=== PATIENT | female | born 1995 | race Caucasian/White ===

== ENCOUNTER → 2019-06-26 | Outpatient (CLI) | payer BC ==
[~2019-06-26] MED LIST: BIRTH CONTROL PO; HYDACE7.5L PO; IRON18 MG PO; MOTION RELIEF25 MG PO; OMEP20ER PO; POTCHL10ER PO
== END | disposition home or self-care (01) ==
LOC: LAB 15:40 → LAB SHORT 15:40
DX: Z34.93 Encounter for supervision of normal pregnancy, unspecified, third trimester (principal)
CPT/HCPCS: 87081; 87653

== ENCOUNTER 2019-07-07 18:55 | Observation (INO) | payer BC ==
[~2019-07-07] VITALS: Ht 160 cm; Wt 94.5 kg
--- NOTE | 2019-07-08 07:13 | NUR ---
PT SLEEPING SOUNDLY AT THIS TIME.
== END 2019-07-08 09:05 | disposition home or self-care (01) ==
LOC: OBS 18:55 → BC 18:55 → OBS 22:45 → BC 22:47
PROVIDERS: ADMIT Advanced Practice Midwife
DX: Z34.93 Encounter for supervision of normal pregnancy, unspecified, third trimester (principal); Z3A.36 36 weeks gestation of pregnancy
CPT/HCPCS: 59025; 81003; 96360; 96372; G0378; J2270; J2550; J7120

== ENCOUNTER 2019-07-16 22:21 | Inpatient (IN) | payer BC ==
[~2019-07-16] VITALS: Ht 165.1 cm; Wt 96.4 kg
[2019-07-16] MEDS ORDERED: CITA20 PO (23:11)
[2019-07-16 23:22] LABS: BASOPHILS ABSOLUTE AUTO 0.06 K/mm3 (0.00-0.23); BASOPHILS PERCENT AUTO 0 % (0-2); EOSINOPHILS ABSOLUTE AUTO 0.06 K/mm3 (0.00-0.68); EOSINOPHILS PERCENT AUTO 0 % (0-6); Hematocrit 29.8 % (33.0-51.0); Hemoglobin 9.9 g/dL (11.5-16.0); IMMATURE GRAN ABSOLUTE AUTO 0.13 K/mm3 (0.00-0.10); IMMATURE GRAN PERCENT AUTO 1 % (0-1); LYMPHOCYTES ABSOLUTE AUTO 2.46 K/mm3 (0.84-5.20); LYMPHOCYTES PERCENT AUTO 15 % (21-46); MONOCYTES ABSOLUTE AUTO 1.49 K/mm3 (0.16-1.47); MONOCYTES PERCENT AUTO 9 % (4-13); Mean Corpuscular HGB 27.7 pg (26.0-34.0); Mean Corpuscular HGB Conc 33.2 g/dL (31.5-36.5); Mean Corpuscular Volume 84 fL (80-100); Mean Platelet Volume 9.6 fL (9.1-12.4); NEUTROPHILS ABSOLUTE AUTO 11.86 K/mm3 (1.96-9.15); NEUTROPHILS PERCENT AUTO 74 % (41-73); Platelet Count 406 K/mm3 (150-400); RDW Coefficient Variation 12.3 % (11.7-14.2); RDW Standard Deviation 37.5 fL (35.1-46.3); Red Blood Cell Count 3.57 M/mm3 (3.80-5.20); White Blood Cell Count 16.06 K/mm3 (4.00-11.30)
--- NOTE | 2019-07-17 15:36 | NUR ---
07/17/19 1536 Suzanne Sanchez 1527 PT INTO OR WITH METZGER CATHETER DRAINING RED COLORED URINE, ASSIST W/TRANSFERING PT TO OR BED
[2019-07-17 16:10] LABS: PCO2 Cord - Arterial 67.7 mmHg (40-50); PO2 Cord - Arterial 21.7 mmHg (16-20)
[2019-07-17 16:13] LABS: PCO2 Cord - Venous 45.3 mmHg (40-50); PO2 Cord - Venous 32.6 mmHg (28-32); pH Umbilical Cord - Venous 7.35 (7.26-7.35)
--- NOTE | 2019-07-17 16:45 | NUR ---
EPIDURAL CATHETER REMOVED BY DR ESTRADA IN OR, TIP INTACT
--- NOTE | 2019-07-17 17:16 | NUR ---
DR PASCAL AT BEDSIDE UPDATING PT ON NB CONDITION
[2019-07-17 18:33] LABS: Source, Urine Catheter
[2019-07-17 18:35] LABS: Bilirubin, Urine Neg (Neg); Blood, Urine 5+ (Neg); Glucose Qualitative, Urine Neg (Neg); Ketones, Urine 3+ (Neg); Leukocyte Esterase, Urine 1+ (Neg); Nitrite, Urine Neg (Neg); Protein, Urine 1+ (Neg); Specific Gravity, Urine 1.005 (1.003-1.022); Urobilinogen, Urine NORM (Normal)
[2019-07-17 18:41] LABS: Appearance, Urine Clear (Clear); Color, Urine Yellow (P-Yellow)
[2019-07-17 18:42] LABS: Bacteria Few /hpf; Red Blood Cells, Urine TNTC /hpf (0-2); Squamous Epithelial Cells Rare /hpf (Few)
--- NOTE | 2019-07-17 22:49 | NUR ---
SMALL BILATERAL LABIAL HEMATOMAS NOTED. PSYCHIATRIC AIDE IN ROOM TO ASSIST WITH PAIN ASSESSMENT. MD AWARE OF PAIN AND SMALL LABIAL HEMATOMAS. WILL CONTINUE TO MEDICATE, REPOSITION, AND USE ICE, HEAT, AND DISTRACTION TO CONTROL PAIN.
--- NOTE | 2019-07-17 23:40 | NUR ---
PT USING HEATING PAD FOR BACK PAIN. PT APPEARS TO BE MORE COMFORTABLE AT THIS TIME.
[2019-07-18 06:19] LABS: Hematocrit 23.6 % (33.0-51.0); Mean Corpuscular HGB 28.4 pg (26.0-34.0); Mean Corpuscular HGB Conc 33.9 g/dL (31.5-36.5); Mean Corpuscular Volume 84 fL (80-100); Mean Platelet Volume 9.7 fL (9.1-12.4); Platelet Count 313 K/mm3 (150-400); RDW Coefficient Variation 12.5 % (11.7-14.2); RDW Standard Deviation 38.1 fL (35.1-46.3); Red Blood Cell Count 2.82 M/mm3 (3.80-5.20); White Blood Cell Count 17.97 K/mm3 (4.00-11.30)
--- NOTE | 2019-07-18 07:41 | NUR ---
PT UP TO W/C TO NURSERY TO TRY AND BREASTFEED .
[2019-07-19] MEDS ORDERED: Percocet 5-3251 EACH PO (08:56)
[2019-07-19] MEDS ORDERED: DOCU100 PO (08:56)
[2019-07-19] MEDS ORDERED: IBUP800 PO (08:56)
[2019-07-19] MEDS ORDERED: Milk Of Ma400 MG/5 M (08:57)
--- NOTE | 2019-07-19 14:49 | NUR ---
DISCHARGE NOTE RN EDUCATED PT ON DISCHARGE INSTRUCTION, PT VERBALIZED UNDERSTANDING. PT EDUCATED ON FOLLOWUP APPOINTMENTS, PT VERBALIZED UNDERSTANDING. PT DENIES ANY QUESTIONS OR CONCERNS AT THIS TIME. RN HANDED DISCHARGE PAPER INSTRUCTIONS TO PT. PT DISCHARGED TO BOARDER STATUS.
== END 2019-07-19 16:00 | disposition home or self-care (01) | DRG 788 ==
LOC: OBS 22:21 → BC 22:59
PROVIDERS: ADMIT Obstetrics & Gynecology
PROC: 10907ZC Drainage of Amniotic Fluid, Therapeutic from Products of Conception, Via Natural or Artificial Opening (ICD-10-PCS; 2019-07-17)
PROC: 3E0R3BZ Introduction of Anesthetic Agent into Spinal Canal, Percutaneous Approach (ICD-10-PCS; 2019-07-17)
PROC: 10D00Z1 Extraction of Products of Conception, Low, Open Approach (ICD-10-PCS; principal; 2019-07-17 15:00)
DX: O40.3XX0 Polyhydramnios, third trimester, not applicable or unspecified (principal); O76 Abnormality in fetal heart rate and rhythm complicating labor and delivery; O62.1 Secondary uterine inertia; O75.81 Maternal exhaustion complicating labor and delivery; Z3A.37 37 weeks gestation of pregnancy; Z37.0 Single live birth; O66.5 Attempted application of vacuum extractor and forceps
CPT/HCPCS: 36415; 51702; 81001; 82803; 85025; 85027; 86850; 86900; 86901; 94660; 99213; J0690; J1170; J1885; J2001; J2370; J2405; J2590; J2704; J2765; J3010; J7120

== ENCOUNTER 2020-06-12 05:09 | Emergency (ER) | payer BC, SELFPAY ==
[~2020-06-12] VITALS: Ht 162.6 cm; Wt 76.2 kg
[~2020-06-12 05:09] MED LIST changes: +CITA20 PO; +DOCU100 PO; +IBUP800 PO; +Milk Of Ma400 MG/5 M; +Percocet 5-3251 EACH PO
== END 2020-06-12 07:41 | disposition home or self-care (01) ==
LOC: ER 05:09
DX: R51.9 Headache, unspecified (principal); K21.9 Gastro-esophageal reflux disease without esophagitis; Z79.899 Other long term (current) drug therapy; Z88.2 Allergy status to sulfonamides; Z91.09 Other allergy status, other than to drugs and biological substances
CPT/HCPCS: 96374; 96375; 99283-25; J1200; J1885; J2765; J7030

== ENCOUNTER 2020-10-22 14:10 | Day surgery (SDC) | payer BC, SELFPAY ==
[~2020-10-22] VITALS: Ht 162.6 cm; Wt 81.3 kg
--- NOTE | 2020-10-22 16:04 | NUR ---
10/22/20 1604 Mirtha Perez 100CC NACL FLUID DEFICIT. SURGEON AWARE.
== END 2020-10-22 17:07 | disposition home or self-care (01) ==
LOC: ORSCSDS 14:10
PROVIDERS: Obstetrics & Gynecology
PROC: 0UDB8ZX Extraction of Endometrium, Via Natural or Artificial Opening Endoscopic, Diagnostic (ICD-10-PCS; principal; 2020-10-22 15:30)
DX: R93.89 Abnormal findings on diagnostic imaging of other specified body structures (principal); K21.9 Gastro-esophageal reflux disease without esophagitis; E66.9 Obesity, unspecified; Z68.30 Body mass index [BMI] 30.0-30.9, adult; Z79.899 Other long term (current) drug therapy
CPT/HCPCS: 88305; A9270; J1100; J2250; J2370; J2405; J2704; J3010

== ENCOUNTER 2021-07-04 13:20 | Inpatient (IN) | payer BC ==
[~2021-07-04] VITALS: Ht 160 cm; Wt 77.4 kg
[2021-07-04 13:43] LABS: BASOPHILS ABSOLUTE AUTO 0.04 K/mm3 (0.00-0.23); BASOPHILS PERCENT AUTO 1 % (0-2); EOSINOPHILS ABSOLUTE AUTO 0.01 K/mm3 (0.00-0.68); EOSINOPHILS PERCENT AUTO 0 % (0-6); Hemoglobin 9.3 g/dL (11.5-16.0); IMMATURE GRAN ABSOLUTE AUTO 0.02 K/mm3 (0.00-0.10); IMMATURE GRAN PERCENT AUTO 0 % (0-1); LYMPHOCYTES ABSOLUTE AUTO 1.25 K/mm3 (0.84-5.20); LYMPHOCYTES PERCENT AUTO 18 % (21-46); MONOCYTES ABSOLUTE AUTO 0.68 K/mm3 (0.16-1.47); MONOCYTES PERCENT AUTO 10 % (4-13); Mean Corpuscular HGB 21.7 pg (26.0-34.0); Mean Corpuscular Volume 72 fL (80-100); Mean Platelet Volume 9.3 fL (9.1-12.4); NEUTROPHILS ABSOLUTE AUTO 5.03 K/mm3 (1.96-9.15); NEUTROPHILS PERCENT AUTO 72 % (41-73); Platelet Count 418 K/mm3 (150-400); RDW Coefficient Variation 17.9 % (11.7-14.2); Red Blood Cell Count 4.28 M/mm3 (3.80-5.20); White Blood Cell Count 7.03 K/mm3 (4.00-11.30)
[2021-07-04 14:03] LABS: Alanine Aminotransfer (ALT/SGP 18 U/L (12-78); Albumin, Blood 3.5 g/dL (3.4-5.0); Albumin/Globulin Ratio 0.9 (0.8-1.8); Alk Phos 63 U/L (50-136); Anion Gap 8 mmol/L (6-16); Aspartate Aminotrans (AST/SGOT 11 U/L (12-37); Bilirubin, Total 0.2 mg/dL (0.1-1.0); Blood Urea Nitrogen 7 mg/dL (8-24); CO2, Blood 23 mmol/L (21-32); Calcium, Blood 8.2 mg/dL (8.5-10.1); Chloride, Blood 109 mmol/L (98-108); Creatinine, Blood 0.78 mg/dL (0.40-1.00); Glomerular Filtration Rate >60 (60-); Glucose, Blood 144 mg/dL (70-99); Potassium, Blood 3.1 mmol/L (3.5-5.5); Sodium, Blood 140 mmol/L (136-145); Total Protein, Blood 7.5 g/dL (6.4-8.2)
[2021-07-04 14:36] LABS: Influenza B, PCR NEGATIVE (NEGATIVE); Resp Syncytial Virus, PCR NEGATIVE (NEGATIVE); SARS-Cov-2 (COVID-19) PCR, MMC NEGATIVE (NEGATIVE)
[2021-07-04 14:39] LABS: Influenza A, PCR POSITIVE (NEGATIVE)
[2021-07-04 14:55] LABS: Source, Urine Clean Catch
[2021-07-04 15:06] LABS: Bilirubin, Urine Neg (Neg); Blood, Urine Neg (Neg); Glucose Qualitative, Urine Neg (Neg); Ketones, Urine 3+ (Neg); Leukocyte Esterase, Urine 3+ (Neg); Nitrite, Urine Neg (Neg); Protein, Urine 2+ (Neg); Urobilinogen, Urine NORM (Normal)
[2021-07-04 15:19] LABS: Appearance, Urine Hazy (Clear); Color, Urine Pale Yellow (P-Yellow)
[2021-07-04 15:20] LABS: Bacteria Many /hpf; Red Blood Cells, Urine 0-2 /hpf (0-2); Squamous Epithelial Cells Many /hpf (Few)
[2021-07-04 15:23] LABS: U Amphetamine Screen Not Detected; U Barbituate Screen Not Detected; U Benzodiazapine Screen Not Detected; U Buprenorphine Screen Not Detected; U Cannabinoids Screen Not Detected; U Cocaine Screen Not Detected; U Methadone Screen Not Detected; U Methamphetamine Screen Not Detected; U Opiates Screen Not Detected; U Oxycodone Screen Not Detected; U Phencyclidine Screen Not Detected; U Propoxyphene Screen Not Detected
[2021-07-04 16:28] LABS: RBC Count, CSF 52 /mm3 (0-0); WBC Count, CSF 1 /mm3 (0-5)
[2021-07-04] MEDS ORDERED: MICROGESTIN 211 EAC1 PO (16:34)
[2021-07-04 16:37] LABS: Appearance, CSF Clear (Clear); Color, CSF No Color (No Color)
[2021-07-04 16:46] LABS: Appearance, CSF Clear (Clear); Color, CSF No Color (No Color); RBC Count, CSF 0 /mm3 (0-0); WBC Count, CSF 1 /mm3 (0-5)
[2021-07-04 17:11] LABS: Lymphocytes, CSF 88 % (40-80); Neutrophils, CSF 13 % (0-6)
[2021-07-04 17:23] LABS: Percent Saturation 2.6 % (15.0-50.0)
[2021-07-04 17:23] LABS: Lymphocytes, CSF 55 % (40-80); Monocytes, CSF 45 % (15-45)
[2021-07-04 17:35] LABS: Glucose, CSF 70 mg/dL (40-70)
--- NOTE | 2021-07-04 19:21 | NUR ---
ADMIT NOTE 26YR OLD FEMALE ADMITTED TO FLOOR FROM THE ED. DX INFLUENZA A, POSSIBLE UTI. COVID NEGATIVE. CONFUSED. AT BEDSIDE ANSWERING QUESTIONS. REPORTEDLY PASSED OUT IN ED. ORIENTED TO USE OF CALL LIGHT. CALL LIGHT IN LISA. ISOLATION PRECAUTIONS INITIATED. WILL BE ON [employer]. CALL LIGHT IN REACH
[2021-07-04 19:44] LABS: Cryptococcus Neoformans/Gattii Not Detected (NOT DETECT); Enterovirus Not Detected (NOT DETECT); Escherichia Coli K1 Not Detected (NOT DETECT); Haemophilus Influenza Not Detected (NOT DETECT); Herpes Simplex Virus 1 Not Detected (NOT DETECT); Herpes Simplex Virus 2 Not Detected (NOT DETECT); Human Herpesvirus 6 Not Detected (NOT DETECT); Human Parechovirus Not Detected (NOT DETECT); Listeria Monocytogenes Not Detected (NOT DETECT); Neisseria Meningitidis Not Detected (NOT DETECT); Streptococcus Agalactiae Not Detected (NOT DETECT); Streptococcus Pneumoniae Not Detected (NOT DETECT); Varicella Zoster Virus Not Detected (NOT DETECT)
[2021-07-05 05:18] LABS: BASOPHILS ABSOLUTE AUTO 0.01 K/mm3 (0.00-0.23); BASOPHILS PERCENT AUTO 0 % (0-2); EOSINOPHILS PERCENT AUTO 0 % (0-6); Hematocrit 26.6 % (33.0-51.0); Hemoglobin 8.1 g/dL (11.5-16.0); IMMATURE GRAN ABSOLUTE AUTO 0.01 K/mm3 (0.00-0.10); IMMATURE GRAN PERCENT AUTO 0 % (0-1); LYMPHOCYTES PERCENT AUTO 25 % (21-46); MONOCYTES ABSOLUTE AUTO 0.66 K/mm3 (0.16-1.47); MONOCYTES PERCENT AUTO 16 % (4-13); Mean Corpuscular HGB 22.4 pg (26.0-34.0); Mean Corpuscular HGB Conc 30.5 g/dL (31.5-36.5); Mean Corpuscular Volume 74 fL (80-100); Mean Platelet Volume 9.9 fL (9.1-12.4); NEUTROPHILS ABSOLUTE AUTO 2.37 K/mm3 (1.96-9.15); NEUTROPHILS PERCENT AUTO 59 % (41-73); Platelet Count 293 K/mm3 (150-400); RDW Coefficient Variation 18.2 % (11.7-14.2); RDW Standard Deviation 49.3 fL (35.1-46.3); Red Blood Cell Count 3.61 M/mm3 (3.80-5.20); White Blood Cell Count 4.05 K/mm3 (4.00-11.30)
[2021-07-05 05:47] LABS: Alanine Aminotransfer (ALT/SGP 16 U/L (12-78); Albumin, Blood 2.8 g/dL (3.4-5.0); Albumin/Globulin Ratio 0.9 (0.8-1.8); Alk Phos 51 U/L (50-136); Anion Gap 4 mmol/L (6-16); Aspartate Aminotrans (AST/SGOT 15 U/L (12-37); Bilirubin, Total 0.2 mg/dL (0.1-1.0); Blood Urea Nitrogen 6 mg/dL (8-24); Bun/Creatinine Ratio 7.3 (12.0-20.0); CO2, Blood 22 mmol/L (21-32); Calcium, Blood 7.7 mg/dL (8.5-10.1); Chloride, Blood 114 mmol/L (98-108); Creatinine, Blood 0.82 mg/dL (0.40-1.00); Globulin, Blood 3.2 g/dL (2.2-4.0); Glomerular Filtration Rate >60 (60-); Glucose, Blood 89 mg/dL (70-99); Potassium, Blood 3.8 mmol/L (3.5-5.5); Sodium, Blood 140 mmol/L (136-145)
--- NOTE | 2021-07-05 17:09 | NUR ---
SITTING IN BEDSIDE CHAIR CURRETLY. TELEMETRY INTACT. IVF INFUSING WITHOUT DIFFICULTY. VOMITTED X 1 TODAY, BUT NO ZOFRAN ADMINISTERED BECAUSE IT WAS IMMEDIATELY RELIEVED WITH VOMITTING. MEDICATED PER E-MAR FOR SORE THROAT PAIN, GENERAL ACHINESS AND COUGH. TOLERATING PO FLUIDS WELL. SPECIAL FOODS ORDERED PER REQUEST. VOIDS WITHOUT DIFFICULY AND STATED THIS MORNING THE BURNING HAS RESIDED. SPOUSE AT BEDSIDE MOST OF THE DAY. ISOLATION DUE TO INFLUENZA. WILL MONITOR.
--- NOTE | 2021-07-06 04:47 | NUR ---
SHIFT SUMMARY 26 YR F ADMITTED ON 07/04/21 FOR INFLUENZA A. NO ACUTE CHANGES OVERNIGHT. PT C/O SORE THROAT AND WAS GIVEN A LOZENGE PER EMAR. THE LOZENGES CAME IN PACKS SO THE REMAINDER IS IN THE ROOM. SHE STATES THAT SHE IS FEELING MUCH BETTER THAN SHE WAS 2 DAYS AGO AND SHE APPEARS TO BE IN GOOD SPIRITS.SHE IS POLITE, COOPERATIVE, AND USES CALL LIGHT APPROPRAITELY.
[2021-07-06 05:36] LABS: BASOPHILS ABSOLUTE AUTO 0.02 K/mm3 (0.00-0.23); BASOPHILS PERCENT AUTO 1 % (0-2); EOSINOPHILS ABSOLUTE AUTO 0.06 K/mm3 (0.00-0.68); EOSINOPHILS PERCENT AUTO 2 % (0-6); Hematocrit 28.4 % (33.0-51.0); Hemoglobin 8.6 g/dL (11.5-16.0); IMMATURE GRAN ABSOLUTE AUTO 0.01 K/mm3 (0.00-0.10); IMMATURE GRAN PERCENT AUTO 0 % (0-1); LYMPHOCYTES ABSOLUTE AUTO 1.36 K/mm3 (0.84-5.20); LYMPHOCYTES PERCENT AUTO 34 % (21-46); MONOCYTES ABSOLUTE AUTO 0.47 K/mm3 (0.16-1.47); MONOCYTES PERCENT AUTO 12 % (4-13); Mean Corpuscular HGB 22.2 pg (26.0-34.0); Mean Corpuscular HGB Conc 30.3 g/dL (31.5-36.5); Mean Corpuscular Volume 73 fL (80-100); NEUTROPHILS ABSOLUTE AUTO 2.09 K/mm3 (1.96-9.15); NEUTROPHILS PERCENT AUTO 52 % (41-73); Platelet Count 308 K/mm3 (150-400); RDW Coefficient Variation 18.8 % (11.7-14.2); RDW Standard Deviation 49.9 fL (35.1-46.3); Red Blood Cell Count 3.87 M/mm3 (3.80-5.20); White Blood Cell Count 4.01 K/mm3 (4.00-11.30)
[2021-07-06 06:08] LABS: Anion Gap 6 mmol/L (6-16); Blood Urea Nitrogen 7 mg/dL (8-24); Bun/Creatinine Ratio 9.1 (12.0-20.0); CO2, Blood 23 mmol/L (21-32); Calcium, Blood 7.8 mg/dL (8.5-10.1); Chloride, Blood 113 mmol/L (98-108); Creatinine, Blood 0.77 mg/dL (0.40-1.00); Glomerular Filtration Rate >60 (60-); Glucose, Blood 121 mg/dL (70-99); Potassium, Blood 4.2 mmol/L (3.5-5.5); Sodium, Blood 142 mmol/L (136-145)
--- NOTE | 2021-07-06 14:17 | NUR ---
TELEMETRY DISCONTINUED PER MD ORDER. NSR 63 PRIOR TO D/C.
[2021-07-06] MEDS ORDERED: ACET500 PO (15:16)
[2021-07-06] MEDS ORDERED: BENMENLOZ (15:17)
[2021-07-06] MEDS ORDERED: IBUP400 PO (15:18)
[2021-07-06] MEDS ORDERED: OSEL75CA PO (15:19)
[2021-07-06] MEDS ORDERED: ONDA4ODT MM (15:20)
--- NOTE | 2021-07-06 16:02 | NUR ---
DISCHARGE INSTRUCTIONS DISCUSSED WITH PATIENT AND SPOUSE. COPY GIVEN TO PATIENT. VERBALIZED UNDERSTANDING.
--- NOTE | 2021-07-06 16:22 | NUR ---
DISCHARGED HOME PER WHEELCHAIR PER PERSONAL VEHICLE WITH SPOUSE. AAO X 4. NO COMPLAINTS VOICED AT DISCHARGED.
== END 2021-07-06 16:42 | disposition home or self-care (01) | DRG 865 ==
LOC: ER 13:20 → MEDS 17:47
PROVIDERS: Emergency Medicine; Nurse Practitioner Acute Care; Physician Assistant; ADMIT Internal Medicine
PROC: 009U3ZX Drainage of Spinal Canal, Percutaneous Approach, Diagnostic (ICD-10-PCS; principal; 2021-07-04)
DX: J10.81 Influenza due to other identified influenza virus with encephalopathy (principal); G92.8 Other toxic encephalopathy; I47.1 Supraventricular tachycardia; Z20.822 Contact with and (suspected) exposure to COVID-19; E87.6 Hypokalemia; F41.9 Anxiety disorder, unspecified; F32.A Depression, unspecified; K21.9 Gastro-esophageal reflux disease without esophagitis; F43.23 Adjustment disorder with mixed anxiety and depressed mood; D50.9 Iron deficiency anemia, unspecified; Z88.2 Allergy status to sulfonamides; Z79.899 Other long term (current) drug therapy; Z79.3 Long term (current) use of hormonal contraceptives
CPT/HCPCS: 0241U; 36415; 62270; 71045; 71260; 80048; 80053; 81001; 82272; 82728; 82945; 83540; 83550; 83735; 84157; 84443; 84484; 84703; 85025; 85379; 86403; 87070; 87086; 87205; 87483; 89051; 93005; 93010; 93970; 96365; 96375; 99285-25; A9270; J0133; J0696; J1650; J2405; J2916; J3480; J7030; Q9967

== ENCOUNTER → 2021-07-21 | Outpatient (CLI) | payer BC ==
[~2021-07-21] MED LIST changes: +ACET500 PO; +BENMENLOZ; +IBUP400 PO; +MICROGESTIN 211 EAC1 PO; +ONDA4ODT MM; +OSEL75CA PO
[2021-07-21 18:17] LABS: Hematocrit 31.1 % (33.0-51.0); Hemoglobin 9.4 g/dL (11.5-16.0)
== END ==
LOC: LAB SHORT 17:25
PROVIDERS: Internal Medicine
DX: D64.9 Anemia, unspecified (principal)
CPT/HCPCS: 85014; 85018

== ENCOUNTER → 2022-01-26 | Outpatient (CLI) | payer BC | END | disposition home or self-care (01) | LOC: LAB SHORT 18:18 → LAB 18:18 | DX: Z33.1 Pregnant state, incidental (principal) | CPT/HCPCS: 84702 ==

== ENCOUNTER → 2022-02-06 | Outpatient (CLI) | payer BC | LOC: LAB SHORT 16:27 | DX: O20.0 Threatened abortion (principal); Z3A.00 Weeks of gestation of pregnancy not specified | CPT/HCPCS: 84702 ==

== ENCOUNTER → 2022-02-25 | Outpatient (CLI) | payer BC ==
[2022-02-25 17:03] LABS: Source, Urine Voided
[2022-02-25 17:59] LABS: Bacteria Mod /hpf; Red Blood Cells, Urine 0-2 /hpf (0-2); Squamous Epithelial Cells Few /hpf (Few); White Blood Cells, Urine 0-2 /hpf (0-5)
[2022-02-25 18:03] LABS: U Amphetamine Screen Not Detected; U Barbituate Screen Not Detected; U Benzodiazapine Screen Not Detected; U Buprenorphine Screen Not Detected; U Cannabinoids Screen Not Detected; U Cocaine Screen Not Detected; U Methadone Screen Not Detected; U Methamphetamine Screen Not Detected; U Opiates Screen DETECTED; U Oxycodone Screen Not Detected; U Phencyclidine Screen Not Detected; U Propoxyphene Screen Not Detected
== END ==
LOC: LAB SHORT 17:01
PROVIDERS: Obstetrics & Gynecology
DX: Z34.91 Encounter for supervision of normal pregnancy, unspecified, first trimester (principal); Z3A.00 Weeks of gestation of pregnancy not specified
CPT/HCPCS: 81015; 87086

== ENCOUNTER 2022-03-25 04:26 | Emergency (ER) | payer BC ==
[~2022-03-25] VITALS: Ht 160 cm; Wt 83.5 kg
[2022-03-25 05:12] LABS: BASOPHILS ABSOLUTE AUTO 0.05 K/mm3 (0.00-0.23); BASOPHILS PERCENT AUTO 1 % (0-2); EOSINOPHILS PERCENT AUTO 2 % (0-6); Hemoglobin 10.5 g/dL (11.5-16.0); IMMATURE GRAN ABSOLUTE AUTO 0.02 K/mm3 (0.00-0.10); IMMATURE GRAN PERCENT AUTO 0 % (0-1); LYMPHOCYTES ABSOLUTE AUTO 2.34 K/mm3 (0.84-5.20); LYMPHOCYTES PERCENT AUTO 26 % (21-46); MONOCYTES ABSOLUTE AUTO 0.55 K/mm3 (0.16-1.47); MONOCYTES PERCENT AUTO 6 % (4-13); Mean Corpuscular HGB Conc 31.8 g/dL (31.5-36.5); Mean Corpuscular Volume 76 fL (80-100); Mean Platelet Volume 9.7 fL (9.1-12.4); NEUTROPHILS ABSOLUTE AUTO 5.93 K/mm3 (1.96-9.15); NEUTROPHILS PERCENT AUTO 65 % (41-73); Platelet Count 430 K/mm3 (150-400); RDW Coefficient Variation 15.8 % (11.7-14.2); RDW Standard Deviation 43.7 fL (35.1-46.3); Red Blood Cell Count 4.37 M/mm3 (3.80-5.20); White Blood Cell Count 9.09 K/mm3 (4.00-11.30)
[2022-03-25 05:30] LABS: Albumin, Blood 3.1 g/dL (3.4-5.0); Albumin/Globulin Ratio 0.8 (0.8-1.8); Bilirubin, Total 0.2 mg/dL (0.1-1.0); Bun/Creatinine Ratio 21.6 (12.0-20.0); Calcium, Blood 8.8 mg/dL (8.5-10.1); Creatinine, Blood 0.6 mg/dL (0.40-1.00); Globulin, Blood 3.8 g/dL (2.2-4.0); Potassium, Blood 3.6 mmol/L (3.5-5.5); Total Protein, Blood 6.9 g/dL (6.4-8.2)
[2022-03-25 09:44] LABS: Hematocrit 29.8 % (33.0-51.0); Hemoglobin 9.3 g/dL (11.5-16.0); Mean Corpuscular HGB 23.8 pg (26.0-34.0); Mean Corpuscular HGB Conc 31.2 g/dL (31.5-36.5); Mean Corpuscular Volume 76 fL (80-100); Mean Platelet Volume 9.8 fL (9.1-12.4); Platelet Count 413 K/mm3 (150-400); RDW Coefficient Variation 15.9 % (11.7-14.2); RDW Standard Deviation 43.6 fL (35.1-46.3); White Blood Cell Count 11.25 K/mm3 (4.00-11.30)
--- NOTE | 2022-03-25 10:37 | NUR ---
Patient is lying in bed and alert. Pt's spouse, Jerry is bedside. Pt explains the events that led to her hospitalization and what has occurred. She shares about her perspective and her concerns. I provide therapeutic listening, theological insights and prayer. Pt and Jerry respond well and show signs of increased peace. They voice appreciation for the visit.
== END 2022-03-25 12:24 | disposition home or self-care (01) ==
LOC: ER 04:26
PROVIDERS: Student in an Organized Health Care Education/Training Program
DX: O20.9 Hemorrhage in early pregnancy, unspecified (principal); Z3A.13 13 weeks gestation of pregnancy; Z88.2 Allergy status to sulfonamides; Z91.09 Other allergy status, other than to drugs and biological substances; Z79.899 Other long term (current) drug therapy
CPT/HCPCS: 36415; 76801; 76817; 80053; 85025; 85027; 86850; 86900; 86901; A9270; J1170; J1885; J2405; J3010; J7030

== ENCOUNTER 2022-10-12 20:59 | Emergency (ER) | payer BC ==
[~2022-10-12] VITALS: Ht 157.5 cm; Wt 79.8 kg
[2022-10-12 21:19] LABS: BASOPHILS ABSOLUTE AUTO 0.08 K/mm3 (0.00-0.23); BASOPHILS PERCENT AUTO 1 % (0-2); EOSINOPHILS ABSOLUTE AUTO 0.21 K/mm3 (0.00-0.68); EOSINOPHILS PERCENT AUTO 2 % (0-6); Hematocrit 27.4 % (33.0-51.0); Hemoglobin 8.1 g/dL (11.5-16.0); IMMATURE GRAN ABSOLUTE AUTO 0.06 K/mm3 (0.00-0.10); IMMATURE GRAN PERCENT AUTO 1 % (0-1); LYMPHOCYTES ABSOLUTE AUTO 3.75 K/mm3 (0.84-5.20); LYMPHOCYTES PERCENT AUTO 30 % (21-46); MONOCYTES ABSOLUTE AUTO 0.94 K/mm3 (0.16-1.47); MONOCYTES PERCENT AUTO 8 % (4-13); Mean Corpuscular HGB Conc 29.6 g/dL (31.5-36.5); Mean Corpuscular Volume 68 fL (80-100); NEUTROPHILS ABSOLUTE AUTO 7.57 K/mm3 (1.96-9.15); NEUTROPHILS PERCENT AUTO 60 % (41-73); Platelet Count 597 K/mm3 (150-400); RDW Coefficient Variation 17.6 % (11.7-14.2); RDW Standard Deviation 42.5 fL (35.1-46.3); Red Blood Cell Count 4.05 M/mm3 (3.80-5.20); White Blood Cell Count 12.61 K/mm3 (4.00-11.30)
[2022-10-12 22:30] VITALS: BP 118/47
== END 2022-10-12 22:52 | disposition home or self-care (01) ==
LOC: ER 20:59
PROVIDERS: Emergency Medicine
DX: O03.9 Complete or unspecified spontaneous abortion without complication (principal); Z88.2 Allergy status to sulfonamides; Z79.899 Other long term (current) drug therapy; Z88.8 Allergy status to other drugs, medicaments and biological substances
CPT/HCPCS: 84702; 85025; 86900; 86901; J1885; J7030

== ENCOUNTER 2025-02-06 07:02 | Day surgery (SDC) | payer BC, OTHER ==
[~2025-02-06] VITALS: Ht 160 cm; Wt 58.5 kg
[2025-02-06] MEDS ORDERED: SEMAGLUTID1.7 MG/0.2 (07:29)
[2025-02-06] MEDS ORDERED: Midazolam HCL 1 MG/ML 5MLVIAL ONE (08:14)
[2025-02-06] MEDS ORDERED: NS 1,000 ML IV ONE ×2 (08:15→09:03)
[2025-02-06 09:48] VITALS: BP 90/61
== END 2025-02-06 09:38 | disposition home or self-care (01) ==
LOC: ORSCSDS 07:02
PROVIDERS: Internal Medicine Gastroenterology
PROC: 0DB98ZX Excision of Duodenum, Via Natural or Artificial Opening Endoscopic, Diagnostic (ICD-10-PCS; principal; 2025-02-06 08:15)
PROC: 0DJD8ZZ Inspection of Lower Intestinal Tract, Via Natural or Artificial Opening Endoscopic (ICD-10-PCS; principal; 2025-02-06 08:15)
PROC: 0DB78ZX Excision of Stomach, Pylorus, Via Natural or Artificial Opening Endoscopic, Diagnostic (ICD-10-PCS; principal; 2025-02-06 08:15)
DX: D50.9 Iron deficiency anemia, unspecified (principal); K21.9 Gastro-esophageal reflux disease without esophagitis; K31.7 Polyp of stomach and duodenum; Z79.899 Other long term (current) drug therapy
CPT/HCPCS: 88305; 88341; 88342; J2250; J2704; J7120